=== PATIENT | male | born 1985 | race Caucasian/White ===

== ENCOUNTER 2021-08-20 08:34 | Emergency (ER) | payer OTHER, BC ==
[~2021-08-20] VITALS: Ht 190.5 cm; Wt 181.4 kg
[2021-08-20 08:47] VITALS: TEMP 99.1
[2021-08-20 09:37] LABS: ALANINE AMINOTRANSFERASE 89 U/L (0-55); ALBUMIN 4.3 gm/dL (3.5-5.0); ALKALINE PHOSPHATASE 52 U/L (40-150); ANION GAP 12 mmol/L (7-16); AST,SGOT 44 U/L (5-34); BASO # 0.1 K/mm3 (0.0-0.2); BASO % 0.6 % (0.0-2.0); BILIRUBIN,TOTAL 0.7 mg/dL (0.2-1.2); BLOOD UREA NITROGEN 15 mg/dL (9-21); C-REACTIVE PROTEIN 1.34 mg/dL (0.00-0.50); CALCIUM 9.7 mg/dL (8.4-10.2); CARBON DIOXIDE 25 mmol/L (22-29); CHLORIDE 104 mmol/L (98-107); CREATININE, serum 1.23 mg/dL (0.72-1.25); EOS # 0.5 K/mm3 (0.0-0.7); EOS % 4.5 % (0-4.0); GLUCOSE 105 mg/dL (70-99); GRAN # 5.5 K/mm3 (1.4-6.5); GRAN % 51.9 % (42.2-75.2); HEMATOCRIT 46.8 % (42.0-52.0); HEMOGLOBIN 15.6 g/dl (13.5-18.0); LYMPH # 3.4 K/mm3 (1.2-3.4); LYMPH % 32.2 % (20.0-51.0); MEAN CELL VOLUME 89 fl (80.0-100.0); MEAN CORPUSCULAR HEMOGLOBIN 30 pg (27.0-31.0); MEAN CORPUSCULAR HGB CONC 33 g/dl (33.0-37.0); MEAN PLATELET VOLUME 9.9 fl (7.4-10.4); MONO # 1.1 K/mm3 (0.1-0.6); MONO % 10.5 % (1.7-9.3); PLATELET COUNT 281 K/mm3 (130-400); POTASSIUM 3.9 mmol/L (3.5-4.5); RED BLOOD COUNT 5.24 M/mm3 (4.20-5.60); REDCELL DISTRIBUTION WIDTH-CV 12.7 % (11.5-14.5); SODIUM 141 mmol/L (136-145); TOTAL PROTEIN 7.9 gm/dL (6.2-8.1)
[2021-08-20 09:46] LABS: INR 1.1 (0.8-3.0); PROTHROMBIN TIME 12.4 SECONDS (9.7-12.8)
[2021-08-20 09:47] LABS: TROPONIN-I < 0.010 ng/mL (0.00-0.033)
[2021-08-20 09:48] LABS: PARTIAL THROMBOPLASTIN TIME 32.2 SECONDS (26.0-37.0)
[2021-08-20 10:25] VITALS: BP 161/86; PULSE 89
== END 2021-08-20 10:38 | disposition home or self-care (01) ==
LOC: COL.ER 08:34
PROVIDERS: Family Medicine
DX: R07.89 Other chest pain (principal); I10 Essential (primary) hypertension; Z20.822 Contact with and (suspected) exposure to COVID-19

== ENCOUNTER 2023-07-28 13:55 | Emergency (ER) | payer BC ==
[~2023-07-28] VITALS: Ht 190.5 cm; Wt 168.2 kg
[2023-07-28 14:32] VITALS: BP 154/87; PULSE 62; TEMP 97.6
== END 2023-07-28 14:22 | disposition home or self-care (01) ==
LOC: COL.ER 13:55
DX: K05.20 Aggressive periodontitis, unspecified (principal)